=== PATIENT | female | born 1945 | race Caucasian/White ===

== ENCOUNTER 2017-09-07 18:04 | Emergency (ER) | payer MEDICARE, OTHER ==
[~2017-09-07] VITALS: Ht 170.2 cm; Wt 65.1 kg
[2017-09-07 18:39] LABS: BASOPHILS % (AUTO) 0.3 % (0-1); EOSINOPHILS # (AUTO) 0.2 X10'3 (0-0.9); EOSINOPHILS % (AUTO) 2.2 % (0-6); HEMATOCRIT 35.5 % (35.0-45.0); HEMOGLOBIN 12.3 g/dl (12.0-16.0); LYMPHOCYTES # (AUTO) 2.7 X10'3 (1.1-4.8); LYMPHOCYTES % (AUTO) 30.7 % (21-51); MEAN CORPUSCULAR HEMOGLOBIN 33.3 PG (27.0-31.0); MEAN CORPUSCULAR HGB CONC 34.6 % (33.0-36.5); MEAN CORPUSCULAR VOLUME 96.2 FL (78-98); MONOCYTES # (AUTO) 0.8 X10'3 (0-0.9); MONOCYTES % (AUTO) 8.9 % (2-12); NEUTROPHILS # (AUTO) 5.2 X10'3 (1.8-7.7); NEUTROPHILS % (AUTO) 57.9 % (42-75); PLATELET COUNT 339 X10'3 (140-440); RED BLOOD COUNT 3.69 X10'6 (4.20-5.60); RED CELL DISTRIBUTION WIDTH 12.7 % (11.5-14.5); WHITE BLOOD COUNT 8.9 X10'3 (4.5-11.0)
[2017-09-07 18:52] LABS: ALANINE AMINOTRANSFERASE 25 U/L (12-78); ALBUMIN 3.8 G/DL (3.4-5.0); ALBUMIN/GLOBULIN RATIO 1.2 (1.1-1.5); ALKALINE PHOSPHATASE 79 IU/L (46-116); ANION GAP 8 (8-16); ASPARTATE AMINO TRANSFERASE 22 U/L (10-37); BILIRUBIN,TOTAL 0.3 MG/DL (0.1-1.0); BLOOD UREA NITROGEN 20 MG/DL (7-18); BUN/CREATININE RATIO 24.1 (6.6-38.0); CALCIUM 9.5 MG/DL (8.5-10.1); CHLORIDE 100 MMOL/L (99-107); CREATININE 0.83 MG/DL (0.40-0.90); GLUCOSE 96 MG/DL (70-104); POTASSIUM 3.8 MMOL/L (3.5-5.1); SODIUM 137 MMOL/L (135-145); TOTAL CARBON DIOXIDE 29.2 MMOL/L (24-32); eGFR 68 ML/MIN
[2017-09-07] MEDS ORDERED: LISI10TA4 PO (21:29)
[2017-09-07 21:41] VITALS: BP 94/45
== END 2017-09-07 21:44 | disposition home or self-care (01) ==
LOC: ER 18:05
DX: M79.89 Other specified soft tissue disorders (principal); I10 Essential (primary) hypertension; Z91.041 Radiographic dye allergy status; Z91.048 Other nonmedicinal substance allergy status
CPT/HCPCS: 36415; 80053; 85025; 85379; 99284